=== PATIENT | male | born 1980 | race Two or more races ===

== ENCOUNTER 2019-10-23 18:28 | Emergency (ER) | payer SELFPAY ==
[~2019-10-23] VITALS: Ht 165.1 cm; Wt 53.1 kg
--- NOTE | 2019-10-23 18:53 | NUR ---
ED Nurse Note: PT WALKED IN DUE TO MEDIAL ABD. PAIN X 3 DAYS WITH N/V. DENIES DIARRHEA. PT ALSO C/O BURNING SENSATION WHEN HE URINATES. AAO X4, AMBULATORY WITH NON LABORED BREATHING.
[2019-10-23] MEDS ORDERED: Dicyclomine HCl 10mg/5ml oral soln ORAL ONE (19:00)
[2019-10-23] MEDS ORDERED: Mylanta II UD 30ml ORAL ONE (19:00)
[2019-10-23 19:12] VITALS: BP 114/71
[2019-10-23] MEDS ORDERED: Omnipaque-300 100ml vial INJ PRN (19:15)
[2019-10-23 19:20] LABS: APPEARANCE,URINE CLEAR; BILIRUBIN, URINE NEGATIVE (NEGATIVE); COLOR,URINE PALE YELLOW; GLUCOSE, URINE (UA) NEGATIVE (NEGATIVE); KETONES,URINE NEGATIVE (NEGATIVE); LEUKOCYTE ESTERASE ,URINE NEGATIVE (NEGATIVE); NITRITE,URINE NEGATIVE (NEGATIVE); PH,URINE 6 (4.5-8.0); PROTEIN,URINE NEGATIVE (NEGATIVE); UROBILINOGEN,URINE NORMAL MG/DL (0.0-1.0)
[2019-10-23 19:25] LABS: BASOPHILS % (AUTO) 0.8 % (0.0-2.0); EOSINOPHILS % (AUTO) 2.1 % (0.0-3.0); HEMATOCRIT 44.1 % (42.0-52.0); HEMOGLOBIN 16.6 G/DL (14.2-18.0); LYMPHOCYTES % (AUTO) 25.1 % (20.0-45.0); MEAN CORPUSCULAR VOLUME 89 FL (80-99); PLATELET COUNT 298 K/UL (150-450); RED BLOOD COUNT 4.97 M/UL (4.70-6.10); RED CELL DISTRIBUTION WIDTH 9.3 % (11.6-14.8); WHITE BLOOD COUNT 8.8 K/UL (4.8-10.8)
--- NOTE | 2019-10-23 19:28 | NUR ---
HAND-OFF: Report given to SUZANNA LANE.
--- NOTE | 2019-10-23 19:31 | NUR ---
ED Nurse Note: pt care endorsed by ARIANA Carvalho. pt appears to be in stable condition. lab work sent and meds given. pt additionally mentions that he is nauseated without vomiting and states that his pain radiates to his sides but not the back. will continue to monitor pt
[2019-10-23 19:32] LABS: ANION GAP 6 mmol/L (5-15); BLOOD UREA NITROGEN 11 mg/dL (7-18); CALCIUM 8.7 MG/DL (8.5-10.1); CARBON DIOXIDE 30 MMOL/L (21-32); CHLORIDE 101 MMOL/L (98-107); CREATININE 0.7 MG/DL (0.55-1.30); POTASSIUM 4.5 MMOL/L (3.5-5.1); SODIUM 137 MMOL/L (136-145)
[2019-10-23 19:36] LABS: ALANINE AMINOTRANSFERASE 45 U/L (12-78); ALBUMIN 4.1 G/DL (3.4-5.0); ALKALINE PHOSPHATASE 60 U/L (46-116); ASPARTATE AMINO TRANSFERASE 25 U/L (15-37); BILIRUBIN,TOTAL 0.5 MG/DL (0.2-1.0)
--- NOTE | 2019-10-23 19:43 | NUR ---
ED Nurse Note: pt reports pain has gotten better, currently rates the pain a 2/10-3/10. will continue to monitor pt
--- NOTE | 2019-10-23 20:43 | Diagnostic Imaging Report ---
Clinical Indication: Medial abdominal pain for 3 days, nausea, vomiting Technique: No oral contrast utilized, per emergency room physician request IV administration nonionic contrast. Venous phase spiral acquisition obtained through the abdomen and pelvis. Multiplanar reconstructions were generated. Total dose length product 649 mGycm. CTDIvol(s) 10 mGy. Dose reduction achieved using automated exposure control Comparison: none Findings: The appendix is normal. No evidence of colonic diverticulosis or diverticulitis. No small bowel distention. A few prominent gas and fluid-filled small bowel loops are seen in the right upper quadrant No free or loculated intraperitoneal gas or fluid is evident. The distal esophagus, stomach, duodenum are unremarkable. The liver, gallbladder, bile ducts, pancreas, spleen, adrenals, kidneys are unremarkable. No renal or ureteral calculi, hydronephrosis, or hydroureter. No pelvic mass or adenopathy. The included lung bases are clear. The bones are unremarkable. Impression: A few prominent gas and fluid-filled small bowel loops are seen in the right upper quadrant, significance doubtful but could indicate mild enteritis changes Otherwise negative This agrees with the preliminary interpretation provided overnight by [facility]erad[facility] service. The CT scanner at [facility] is accredited by the [employer] and the scans are performed using protocols designed to limit radiation exposure to as low as reasonably achievable to attain images of sufficient resolution adequate for diagnostic evaluation.
[2019-10-23] MEDS ORDERED: ZOFRAN4 MG ORAL (21:08)
--- NOTE | 2019-10-23 21:10 | Emergency Room Report ---
History of Present Illness General Chief Complaint: Abdominal Pain Source: Patient Present Illness HPI 39-year-old male presents with generalized abdominal pain, nausea and vomiting for the past 3 days he endorses an achy crampy abdominal pain no aggravating relieving factors severity is moderate, intermittent, no diarrhea, no fevers no chest pain or shortness of breath no dyspnea on exertion, patient is unsure if he ate something, he denies any right lower quadrant pain patient presents for evaluation Allergies: Coded Allergies: No Known Allergies (Unverified , 10/23/19) Patient History Past Medical History: see triage record Reviewed Nursing Documentation: PMH: Agreed; PSxH: Agreed Nursing Documentation-PMH Past Medical History: No Stated History Review of Systems All Other Systems: negative except mentioned in HPI Physical Exam Vital Signs Date Time Temp Pulse Resp B/P (MAP) Pulse Ox O2 Delivery O2 Flow Rate FiO2 10/23/19 18:43 98.2 76 16 124/81 (95) 99 Room Air Sp02 EP Interpretation: reviewed, normal General Appearance: well appearing, no apparent distress, alert Head: normocephalic, atraumatic Eyes: bilateral eye PERRL, bilateral eye EOMI ENT: uvula midline, moist mucus membranes Neck: supple, thyroid normal, supple/symm/no masses Respiratory: lungs clear, no respiratory distress, no retraction, no accessory muscle use Cardiovascular #1: normal peripheral pulses, regular rate, rhythm, no edema, no gallop, no murmur Gastrointestinal: non tender, soft, no guarding, no rebound Musculoskeletal: normal inspection Neurologic: alert, oriented x3 Psychiatric: mood/affect normal Skin: no rash, warm/dry Medical Decision Making Diagnostic Impression: Primary Impression: Abdominal pain Qualified Codes: R10.84 - Generalized abdominal pain Additional Impression: Gastroenteritis ER Course 39-year-old male presents with generalized abdominal pain differential diagnosis includes appendicitis diverticulitis, gastroenteritis Patient is and symptoms consistent with gastroenteritis with a component of dehydration Patient given fluid hydration and antiemetics with improvement in symptoms repeat abdominal exam remains soft nontender CT scan shows inflammation consistent with gastroenteritis Disposition home with return precautions, supportive care Laboratory Tests Test 10/23/19 19:06 10/23/19 19:09 Urine Color Pale yellow Urine Appearance Clear Urine pH 6 (4.5-8.0) Urine Specific [place] 1.015 (1.005-1.035) Urine Protein Negative (NEGATIVE) Urine Glucose (UA) Negative (NEGATIVE) Urine Ketones Negative (NEGATIVE) Urine Blood 2+ (NEGATIVE) H Urine Nitrite Negative (NEGATIVE) Urine Bilirubin Negative (NEGATIVE) Urine Urobilinogen Normal MG/DL (0.0-1.0) Urine Leukocyte Esterase Negative (NEGATIVE) Urine RBC 2-4 /HPF (0 - 0) H Urine WBC 0-2 /HPF (0 - 0) Urine Squamous Epithelial Cells None /LPF (NONE/OCC) Urine Bacteria Few /HPF (NONE) Urine Opiates Screen Negative (NEGATIVE) Urine Barbiturates Screen Negative (NEGATIVE) Phencyclidine (PCP) Screen Negative (NEGATIVE) Urine Amphetamines Screen Negative (NEGATIVE) Urine Benzodiazepines Screen Negative (NEGATIVE) Urine Cocaine Screen Negative (NEGATIVE) Urine Marijuana (THC) Screen Negative (NEGATIVE) White Blood Count 8.8 K/UL (4.8-10.8) Red Blood Count 4.97 M/UL (4.70-6.10) Hemoglobin 16.6 G/DL (14.2-18.0) Hematocrit 44.1 % (42.0-52.0) Mean Corpuscular Volume 89 FL (80-99) Mean Corpuscular Hemoglobin 33.3 PG (27.0-31.0) H Mean Corpuscular Hemoglobin Concent 37.5 G/DL (32.0-36.0) H Red Cell Distribution Width 9.3 % (11.6-14.8) L Platelet Count 298 K/UL (150-450) Mean Platelet Volume 5.6 FL (6.5-10.1) L Neutrophils (%) (Auto) 67.0 % (45.0-75.0) Lymphocytes (%) (Auto) 25.1 % (20.0-45.0) Monocytes (%) (Auto) 5.0 % (1.0-10.0) Eosinophils (%) (Auto) 2.1 % (0.0-3.0) Basophils (%) (Auto) 0.8 % (0.0-2.0) Sodium Level 137 MMOL/L (136-145) Potassium Level 4.5 MMOL/L (3.5-5.1) Chloride Level 101 MMOL/L (98-107) Carbon Dioxide Level 30 MMOL/L (21-32) Anion Gap 6 mmol/L (5-15) Blood Urea Nitrogen 11 mg/dL (7-18) Creatinine 0.7 MG/DL (0.55-1.30) Estimate Glomerular Filtration Rate > 60 mL/min (>60) Glucose Level 114 MG/DL (74-106) H Calcium Level 8.7 MG/DL (8.5-10.1) Total Bilirubin 0.5 MG/DL (0.2-1.0) Aspartate Amino Transferase (AST) 25 U/L (15-37) Alanine Aminotransferase (ALT) 45 U/L (12-78) Alkaline Phosphatase 60 U/L (46-116) Total Protein 8.3 G/DL (6.4-8.2) H Albumin 4.1 G/DL (3.4-5.0) Globulin 4.2 g/dL Albumin/Globulin Ratio 1.0 (1.0-2.7) Lipase 125 U/L (73-393) CT/MRI/US Diagnostic Results CT/MRI/US Diagnostic Results : Impression Procedure: CT Abdomen Pelvis w/Contrast CT ABDOMEN + PELVIS With Contrast: Fluid within nondistended loops of small bowel and within stomach without bowel wall thickening or surrounding inflammation can be normal or can be seen with gastroenteritis in the right clinical setting. No appendicitis, inflammatory changes of bowel or bowel obstruction. No free fluid. No free air. Aorta, liver, spleen, pancreas, gallbladder, and kidneys are unremarkable. Dictated By: Vinicius Yeh MD Electronically Signed By: Signed Date/Time CC: Last Vital Signs Date Time Temp Pulse Resp B/P (MAP) Pulse Ox O2 Delivery O2 Flow Rate FiO2 10/23/19 19:12 98.2 75 20 114/71 100 Room Air Disposition: HOME, SELF-CARE Condition: Stable Scripts Ondansetron (Zofran) 4 Mg Tablet 4 MG ORAL Q8H PRN for Nausea & Vomiting, #10 TAB 0 Refills Prov: Remington Watters MD 10/23/19 Referrals: [facility] Kaylynn Arreola [facility] Patient Instructions: Abdominal Pain, Adult, Viral Gastroenteritis, Adult Additional Instructions: The patient was provided with discharge instructions, notified to follow-up with a primary care doctor and or specialist in the next 24-48 hours, and to return to the ED if they have worsening of their symptoms. Please note that this report is being documented using DRAGON technology. This can lead to erroneous entry secondary to incorrect interpretation by the dictating instrument. Remington Watters MD Oct 23, 2019 21:10
[2019-10-23 21:17] VITALS: BP 122/84
--- NOTE | 2019-10-23 21:17 | NUR ---
ER DISCHARGE NOTE: Patient is cleared to be discharged per ERMD, pt is aox4, on room air, with stable vital signs. pt was given dc and prescription instructions, pt was able to verbalize understanding, pt id band and iv site removed without complications. pt is able to ambulate with steady gait. pt took all belongings and left with his significant other.
[2019-10-24] MEDS ORDERED: ONDANSETRON ODT4 MG BC (23:22)
[2019-10-24] MEDS ORDERED: TRAMADOL HCL50 MG ORAL (23:22)
[2019-10-24] MEDS ORDERED: TYLENOL325 MG ORAL (23:22)
== END 2019-10-23 21:17 | disposition home or self-care (01) ==
LOC: EMR 19:05
DX: K52.89 Other specified noninfective gastroenteritis and colitis (principal); R10.84 Generalized abdominal pain
CPT/HCPCS: 36415; 74177; 80053; 80307; 81003; 83690; 85025; 96361; 96374; 96375; 99284; J2405; J7030; Q9967; S0028

== ENCOUNTER 2019-10-24 19:09 | Emergency (ER) | payer SELFPAY ==
[~2019-10-24] VITALS: Ht 157.5 cm; Wt 81.6 kg
[~2019-10-24 19:09] MED LIST: ZOFRAN4 MG ORAL
[2019-10-24 19:30] VITALS: BP 116/84
--- NOTE | 2019-10-24 19:42 | Emergency Room Report ---
History of Present Illness General Chief Complaint: Abdominal Pain Source: Patient Present Illness HPI Patient returns with continued abdominal pain. This is below his umbilicus. Referred pain to his penis when he urinates. The pain is improved from when he was seen [address] scan revealed enteritis. His white count was normal. No vomiting. Some loose stools but or diarrhea. No fevers or chills. The pain is rated 6/10 and aching. Worse when the abdomen is palpated. Somewhat episodic. He denies dysuria per se. He denies penile discharge or exposure to sexually transmitted diseases. Zofran was prescribed but no analgesics. No medications have been taken. No fevers, chills, sore throat, chest pain, palpitations, shortness of breath, joint pain, rashes, depression, anxiety, visual changes, dizziness, headache. Allergies: Coded Allergies: No Known Allergies (Unverified , 10/23/19) Patient History Past Medical History: see triage record, old chart reviewed Social History: Denies: smoking, alcohol use, drug use Social History Narrative From [facility], works Reviewed Nursing Documentation: PMH: Agreed; PSxH: Agreed Nursing Documentation-PMH Past Medical History: No Stated History Review of Systems All Other Systems: negative except mentioned in HPI Physical Exam Vital Signs Date Time Temp Pulse Resp B/P (MAP) Pulse Ox O2 Delivery O2 Flow Rate FiO2 10/24/19 19:15 98.6 82 14 126/84 (98) 97 Room Air Sp02 EP Interpretation: reviewed, normal General Appearance: well appearing, no apparent distress, GCS 15 Head: normocephalic Eyes: bilateral eye normal inspection, bilateral eye PERRL, bilateral eye EOMI ENT: moist mucus membranes Neck: supple Respiratory: lungs clear, normal breath sounds Cardiovascular #1: regular rate, rhythm Cardiovascular #2: 2+ radial (R) Gastrointestinal: normal inspection, normal bowel sounds, no mass, non- distended, no guarding, no rebound, tenderness - Infraumbilical Genitourinary: no CVA tenderness Musculoskeletal: back normal, normal range of motion, gait/station normal Neurologic: alert, oriented x3, grossly normal Psychiatric: mood/affect normal Skin: no rash, warm/dry Medical Decision Making Diagnostic Impression: Primary Impression: Abdominal pain Qualified Codes: R10.30 - Lower abdominal pain, unspecified Additional Impression: Enteritis ER Course Patient returns with abdominal pain. Differential includes appendicitis, unresolved gastroenteritis, urinary tract infection, diverticulitis amongst others. Clinically the patient is somewhat improved and without fever appendicitis is less likely. Labs are indicated to be repeated particular urinalysis as he is complaining about dysuria and referred pain to his penis when he urinates. Patient will give IV hydration and also a dose of Toradol. If labs are abnormal CT scan may need to be repeated to exclude appendicitis. White count slightly more elevated but no left shift. Other labs unremarkable. Urinalysis positive ketones. No pyuria. Eosinophilia. Repeat exam improved with decreased pain. Discussed results and treatment plan with patient. Discussed eosinophilia and the need for parasite evaluation. Plan continued outpatient observation and treatment. Patient stable for discharge. Laboratory Tests Test 10/24/19 19:59 White Blood Count 9.5 K/UL (4.8-10.8) Red Blood Count 4.94 M/UL (4.70-6.10) Hemoglobin 16.3 G/DL (14.2-18.0) Hematocrit 43.0 % (42.0-52.0) Mean Corpuscular Volume 87 FL (80-99) Mean Corpuscular Hemoglobin 33.0 PG (27.0-31.0) H Mean Corpuscular Hemoglobin Concent 37.9 G/DL (32.0-36.0) H Red Cell Distribution Width 9.1 % (11.6-14.8) L Platelet Count 301 K/UL (150-450) Mean Platelet Volume 5.5 FL (6.5-10.1) L Neutrophils (%) (Auto) 51.6 % (45.0-75.0) Lymphocytes (%) (Auto) 34.1 % (20.0-45.0) Monocytes (%) (Auto) 8.3 % (1.0-10.0) Eosinophils (%) (Auto) 5.0 % (0.0-3.0) H Basophils (%) (Auto) 1.0 % (0.0-2.0) Urine Color Pale yellow Urine Appearance Clear Urine pH 7 (4.5-8.0) Urine Specific [place] 1.010 (1.005-1.035) Urine Protein Negative (NEGATIVE) Urine Glucose (UA) Negative (NEGATIVE) Urine Ketones Negative (NEGATIVE) Urine Blood Negative (NEGATIVE) Urine Nitrite Negative (NEGATIVE) Urine Bilirubin Negative (NEGATIVE) Urine Urobilinogen Normal MG/DL (0.0-1.0) Urine Leukocyte Esterase Negative (NEGATIVE) Sodium Level 139 MMOL/L (136-145) Potassium Level 4.0 MMOL/L (3.5-5.1) Chloride Level 101 MMOL/L (98-107) Carbon Dioxide Level 32 MMOL/L (21-32) Anion Gap 6 mmol/L (5-15) Blood Urea Nitrogen 8 mg/dL (7-18) Creatinine 0.7 MG/DL (0.55-1.30) Estimate Glomerular Filtration Rate > 60 mL/min (>60) Glucose Level 97 MG/DL (74-106) Calcium Level 9.4 MG/DL (8.5-10.1) Total Bilirubin 0.8 MG/DL (0.2-1.0) Aspartate Amino Transferase (AST) 19 U/L (15-37) Alanine Aminotransferase (ALT) 44 U/L (12-78) Alkaline Phosphatase 57 U/L (46-116) Total Protein 8.2 G/DL (6.4-8.2) Albumin 4.0 G/DL (3.4-5.0) Globulin 4.2 g/dL Albumin/Globulin Ratio 1.0 (1.0-2.7) Lipase 91 U/L (73-393) Last Vital Signs Date Time Temp Pulse Resp B/P (MAP) Pulse Ox O2 Delivery O2 Flow Rate FiO2 10/24/19 23:35 98.0 19 115/81 97 Room Air 10/24/19 19:30 81 Status: improved Disposition: HOME, SELF-CARE Condition: Improved Scripts Tramadol Hcl* (ULTRAM*) 50 Mg Tablet 50 MG ORAL Q6H PRN for For Pain, #6 TAB 0 Refills Prov: Martínez Arteaga MD 10/24/19 Acetaminophen (Tylenol) 325 Mg Tablet 650 MG ORAL Q6H PRN for Prn Pain/Headache/Temp > 101, #20 TAB 0 Refills Prov: Martínez Arteaga MD 10/24/19 Ondansetron Odt* (ZOFRAN ODT*) 4 Mg Tab.rapdis 4 MG BC EVERY 8 HOURS, #6 TAB 0 Refills Prov: Martínez Arteaga MD 10/24/19 Martínez Arteaga MD Oct 24, 2019 19:42
[2019-10-24] MEDS ORDERED: Ketorolac 30mg Inj IV ONE (19:45)
[2019-10-24 20:14] LABS: APPEARANCE,URINE CLEAR; BILIRUBIN, URINE NEGATIVE (NEGATIVE); COLOR,URINE PALE YELLOW; GLUCOSE, URINE (UA) NEGATIVE (NEGATIVE); KETONES,URINE NEGATIVE (NEGATIVE); LEUKOCYTE ESTERASE ,URINE NEGATIVE (NEGATIVE); NITRITE,URINE NEGATIVE (NEGATIVE); PH,URINE 7 (4.5-8.0); PROTEIN,URINE NEGATIVE (NEGATIVE); UROBILINOGEN,URINE NORMAL MG/DL (0.0-1.0)
[2019-10-24 20:26] LABS: ANION GAP 6 mmol/L (5-15); BLOOD UREA NITROGEN 8 mg/dL (7-18); CALCIUM 9.4 MG/DL (8.5-10.1); CARBON DIOXIDE 32 MMOL/L (21-32); CHLORIDE 101 MMOL/L (98-107); CREATININE 0.7 MG/DL (0.55-1.30); SODIUM 139 MMOL/L (136-145)
[2019-10-24 20:30] LABS: ALANINE AMINOTRANSFERASE 44 U/L (12-78); ALKALINE PHOSPHATASE 57 U/L (46-116); ASPARTATE AMINO TRANSFERASE 19 U/L (15-37); BILIRUBIN,TOTAL 0.8 MG/DL (0.2-1.0)
[2019-10-24 20:36] LABS: HEMOGLOBIN 16.3 G/DL (14.2-18.0); LYMPHOCYTES % (AUTO) 34.1 % (20.0-45.0); MEAN CORPUSCULAR VOLUME 87 FL (80-99); MONOCYTES % (AUTO) 8.3 % (1.0-10.0); NEUTROPHILS % (AUTO) 51.6 % (45.0-75.0); PLATELET COUNT 301 K/UL (150-450); RED BLOOD COUNT 4.94 M/UL (4.70-6.10); RED CELL DISTRIBUTION WIDTH 9.1 % (11.6-14.8); WHITE BLOOD COUNT 9.5 K/UL (4.8-10.8)
[2019-10-24] MEDS ORDERED: ONDANSETRON ODT4 MG BC (23:22)
[2019-10-24] MEDS ORDERED: TYLENOL325 MG ORAL (23:22)
[2019-10-24] MEDS ORDERED: TRAMADOL HCL50 MG ORAL (23:22)
[2019-10-24 23:35] VITALS: BP 115/81
== END 2019-10-24 23:30 | disposition home or self-care (01) ==
LOC: EMR 19:45
DX: K52.9 Noninfective gastroenteritis and colitis, unspecified (principal); R10.30 Lower abdominal pain, unspecified
CPT/HCPCS: 36415; 80053; 81003; 83690; 85025; 96361; 96374; 99284; J1885; J7030